=== PATIENT | male | born 1960 | race Caucasian/White ===

== ENCOUNTER → 2020-12-24 13:34 | Outpatient (BNVA) | payer OTHER, SELFPAY | PROVIDERS: Family Provider Family Medicine; PCP Family Medicine; Visit Provider Podiatrist Foot & Ankle Surgery | DX: M25.872 Other specified joint disorders, left ankle and foot (principal) | CPT/HCPCS: 73630 ==

== ENCOUNTER 2021-02-04 16:04 | Outpatient (CLI) | payer OTHER, SELFPAY ==
--- NOTE | 2021-02-04 16:00 | MR_ITS ---
WS: [id number] INDICATION: Chronic left foot pain TECHNIQUE: MRI left foot without gadolinium enhancement. Sagittal T1 PD and STIR imaging. Axial T1 an d T2 and STIR imaging. Axial T2 imaging. Coronal PD imaging. Patient refused coronal T2 imaging due t o pain FINDINGS: Pes planus. Moderate joint space narrowing involving the IP joints. Mild degenerative arthr itis at the first MTP. Bipartite or chronic fracture of the lateral first sesamoid. Comminuted fracture of the medial sesamo id best visualized on the coronal PD imaging with multiple visualized fracture lines. Small amount of edema. Normal visualized tibiotalar joint. Normal talocalcaneal articulation. Normal cuboid. Base of the fif th metatarsal is normal. Normal talonavicular articulation. Normal metatarsals. MR/MR foot LT wo con* [id number] IMPRESSION: 1. Comminuted fracture involving the medial first sesamoid with multiple visua lized fracture lines best seen on the coronal PD imaging. Small amount of edema in this location. Chronic appearing bipartite or chronic fracture of the later al sesamoid. 2. No other acute appearing findings. 3. Normal tibiotalar and talocalcaneal articulations. Normal talonavicular art iculation. 4. Mild degenerative narrowing involving the IP joints and first MTP.
== END 2021-02-04 16:05 | disposition home or self-care (01) ==
LOC: RADSHAW 16:14
PROVIDERS: Family Provider Family Medicine; PCP Family Medicine; Visit Provider Podiatrist Foot & Ankle Surgery
DX: M25.872 Other specified joint disorders, left ankle and foot (principal); S92.812A Other fracture of left foot, initial encounter for closed fracture; X58.XXXA Exposure to other specified factors, initial encounter
CPT/HCPCS: 73718

== ENCOUNTER 2021-02-25 14:30 | Outpatient (CLI) | payer OTHER, SELFPAY | END 2021-02-25 14:31 | disposition home or self-care (01) | LOC: SPT 14:30 | PROVIDERS: Family Provider Family Medicine; PCP Family Medicine; Visit Provider Podiatrist Foot & Ankle Surgery | DX: Z46.89 Encounter for fitting and adjustment of other specified devices (principal); M25.872 Other specified joint disorders, left ankle and foot; M79.672 Pain in left foot; M77.42 Metatarsalgia, left foot | CPT/HCPCS: 97760; L4361 ==

== ENCOUNTER → 2021-04-25 13:21 | Outpatient (BNVA) | payer OTHER, SELFPAY | PROVIDERS: Family Provider Family Medicine; PCP Family Medicine; Visit Provider Internal Medicine | DX: E21.3 Hyperparathyroidism, unspecified (principal) | CPT/HCPCS: 99204 ==

== ENCOUNTER → 2021-07-01 14:19 | Outpatient (BNVA) | payer OTHER, SELFPAY | PROVIDERS: Family Provider Family Medicine; PCP Family Medicine; Visit Provider Nurse Practitioner Family | DX: I25.10 Atherosclerotic heart disease of native coronary artery without angina pectoris (principal); I10 Essential (primary) hypertension; Z95.1 Presence of aortocoronary bypass graft | CPT/HCPCS: 99214 ==

== ENCOUNTER → 2021-08-05 14:21 | Outpatient (BNVA) | payer OTHER, SELFPAY | PROVIDERS: Family Provider Family Medicine; PCP Family Medicine; Visit Provider Internal Medicine | DX: E21.3 Hyperparathyroidism, unspecified (principal); N18.2 Chronic kidney disease, stage 2 (mild) | CPT/HCPCS: 80053; 82310; 83970; 99214 ==

== ENCOUNTER 2021-08-08 15:51 | Outpatient (CLI) | payer OTHER, SELFPAY ==
[2021-08-08 17:59] LABS: Urine Creatinine 131 mg/dL (39-259)
[2021-08-08 18:37] LABS: Total Volume Urine 1500 ml
[2021-08-08 18:38] LABS: Total Volume Urine 1500 ml
[2021-08-08 19:34] LABS: Calcium 24 Hour Urine 302 mg/24hr (100-300); Urine Calcium Result 20.1 mg/dL
== END 2021-08-08 15:52 | disposition home or self-care (01) ==
LOC: LAB 15:54
PROVIDERS: PCP Family Medicine; Visit Provider Internal Medicine
DX: E21.3 Hyperparathyroidism, unspecified (principal); E78.49 Other hyperlipidemia
CPT/HCPCS: 82340; 82570

== ENCOUNTER → 2021-08-14 14:52 | Outpatient (BNVA) | payer OTHER, SELFPAY | PROVIDERS: PCP Family Medicine; Visit Provider Podiatrist Foot & Ankle Surgery | DX: Q66.71 Congenital pes cavus, right foot (principal); Q66.72 Congenital pes cavus, left foot; S92.812D Other fracture of left foot, subsequent encounter for fracture with routine healing; M77.40 Metatarsalgia, unspecified foot; X58.XXXD Exposure to other specified factors, subsequent encounter | CPT/HCPCS: 73630; 99214 ==

== ENCOUNTER → 2021-11-14 13:17 | Outpatient (BNVA) | payer OTHER, SELFPAY | PROVIDERS: PCP Family Medicine; Visit Provider Internal Medicine | DX: E21.3 Hyperparathyroidism, unspecified (principal); N18.2 Chronic kidney disease, stage 2 (mild); M81.0 Age-related osteoporosis without current pathological fracture; Z87.891 Personal history of nicotine dependence | CPT/HCPCS: 36415; 82310; 83970; 99214 ==

== ENCOUNTER → 2021-11-29 13:09 | Outpatient (BNVA) | payer OTHER, SELFPAY | PROVIDERS: PCP Family Medicine; Visit Provider Podiatrist Foot & Ankle Surgery | DX: S92.812D Other fracture of left foot, subsequent encounter for fracture with routine healing; X58.XXXD Exposure to other specified factors, subsequent encounter; Q66.71 Congenital pes cavus, right foot; Q66.72 Congenital pes cavus, left foot; M77.40 Metatarsalgia, unspecified foot | CPT/HCPCS: 99213 ==

== ENCOUNTER → 2021-12-03 16:17 | Outpatient (BNVA) | payer OTHER, SELFPAY | PROVIDERS: PCP Family Medicine; Visit Provider Internal Medicine | DX: I12.9 Hypertensive chronic kidney disease with stage 1 through stage 4 chronic kidney disease, or unspecified chronic kidney disease (principal); N18.9 Chronic kidney disease, unspecified; Z87.891 Personal history of nicotine dependence; Z95.1 Presence of aortocoronary bypass graft; I25.10 Atherosclerotic heart disease of native coronary artery without angina pectoris | CPT/HCPCS: 99213 ==

== ENCOUNTER 2021-12-27 13:12 | Outpatient (CLI) | payer OTHER, SELFPAY ==
--- NOTE | 2021-12-27 13:30 | XR_ITS ---
WS: [id number] SCREENING DEXA SCAN [employer] CLINICAL INFORMATION: osteoporosis COMPARISON: None. FINDINGS: The L1-L4 bone mineral density measures 1.393 g/cm2. This corresponds to a T score score of 1.4 and Z score of 1.1. Left femoral neck bone mineral density measures 0.686 g/cm2. This corresponds to a T score of -2.9 an d Z score of -2.8. Right femoral neck bone mineral density measures 0.753 g/cm2. This corresponds to a T score -2.4of an d Z score of -2.4. Mean femoral neck bone mineral density measures 0.720 g/cm2. This corresponds to a T score of -2.6 an d Z score of -2.6. XR/XR DEXA axial skeleton* [id number] IMPRESSION: Normal bone mineralization lumbar spine. Osteoporosis femoral necks at the lowe r end of the range. Patient's FRAX calculated 10 year probability for major osteoporotic fracture i s 17.3 % and osteoporotic hip fracture is 8.8%.
== END 2021-12-27 13:13 | disposition home or self-care (01) ==
LOC: RAD 13:13
PROVIDERS: PCP Family Medicine; Visit Provider Internal Medicine
DX: M81.0 Age-related osteoporosis without current pathological fracture (principal)
CPT/HCPCS: 77080

== ENCOUNTER 2021-12-30 08:45 | Outpatient (CLI) | payer OTHER, SELFPAY ==
--- NOTE | 2021-12-30 08:49 | NM_ITS ---
WS: [email or web address] INDICATION: Hyperparathyroidism TECHNIQUE: Nuclear medicine parathyroid study. 17.6 mCi technetium 99m sestamibi.Initial and Delayed imaging with chin and suprasternal markers. FINDINGS: Normal homogeneous uptake in both thyroid lobes. Normal submandibular uptake. Delayed imagi ng demonstrates normal thyroid washout. No retained activity to suggest parathyroid adenoma. No other suspicious findings. NM/NM parathyroid [id number] IMPRESSION: No evidence of parathyroid adenoma.
== END 2021-12-30 08:46 | disposition home or self-care (01) ==
LOC: RAD 08:47
PROVIDERS: PCP Family Medicine; Visit Provider Internal Medicine
DX: E21.3 Hyperparathyroidism, unspecified (principal)
CPT/HCPCS: 78070; A9500

== ENCOUNTER → 2022-02-18 13:10 | Outpatient (BNVA) | payer OTHER, SELFPAY | PROVIDERS: PCP Family Medicine; Visit Provider Podiatrist Foot & Ankle Surgery | DX: Q66.71 Congenital pes cavus, right foot (principal); Q66.72 Congenital pes cavus, left foot; M77.41 Metatarsalgia, right foot; M77.42 Metatarsalgia, left foot; S92.812D Other fracture of left foot, subsequent encounter for fracture with routine healing; X58.XXXD Exposure to other specified factors, subsequent encounter; L84 Corns and callosities | CPT/HCPCS: 99214 ==

== ENCOUNTER → 2022-04-09 15:16 | Outpatient (BNVA) | payer OTHER, SELFPAY | PROVIDERS: PCP Family Medicine; Visit Provider Internal Medicine | DX: E21.3 Hyperparathyroidism, unspecified (principal); N18.2 Chronic kidney disease, stage 2 (mild); I10 Essential (primary) hypertension | CPT/HCPCS: 36415; 82310; 83970; 99214 ==

== ENCOUNTER → 2022-08-26 13:29 | Outpatient (BNVA) | payer OTHER, SELFPAY | PROVIDERS: PCP Family Medicine; Visit Provider Podiatrist Foot & Ankle Surgery | DX: Q66.72 Congenital pes cavus, left foot (principal); Q66.71 Congenital pes cavus, right foot; M77.41 Metatarsalgia, right foot; M77.42 Metatarsalgia, left foot; L84 Corns and callosities | CPT/HCPCS: 99213 ==

== ENCOUNTER → 2022-10-07 14:23 | Outpatient (BNVA) | payer OTHER, SELFPAY | PROVIDERS: Visit Provider Internal Medicine | DX: E21.3 Hyperparathyroidism, unspecified (principal); N18.2 Chronic kidney disease, stage 2 (mild); I10 Essential (primary) hypertension | CPT/HCPCS: 80053; 82306; 82310; 83970; 99213; 99214 ==

== ENCOUNTER → 2022-10-27 13:48 | Outpatient (BNVA) | payer OTHER, SELFPAY | PROVIDERS: Visit Provider Podiatrist Foot & Ankle Surgery | DX: L84 Corns and callosities; Q66.72 Congenital pes cavus, left foot; Q66.71 Congenital pes cavus, right foot; M77.42 Metatarsalgia, left foot; M77.41 Metatarsalgia, right foot | CPT/HCPCS: 99213 ==

== ENCOUNTER → 2022-12-16 08:26 | Outpatient (BNVA) | payer OTHER, SELFPAY | PROVIDERS: Referring Provider Family Medicine; Visit Provider Surgery | DX: Z12.11 Encounter for screening for malignant neoplasm of colon (principal) | CPT/HCPCS: 99203 ==

== ENCOUNTER → 2023-01-12 12:57 | Outpatient (BNVA) | payer OTHER, SELFPAY | PROVIDERS: Visit Provider Podiatrist Foot & Ankle Surgery | DX: L84 Corns and callosities; M20.42 Other hammer toe(s) (acquired), left foot; M20.41 Other hammer toe(s) (acquired), right foot; M21.621 Bunionette of right foot; M21.622 Bunionette of left foot; M77.42 Metatarsalgia, left foot; M77.41 Metatarsalgia, right foot | CPT/HCPCS: 99213 ==

== ENCOUNTER → 2023-01-21 14:29 | Outpatient (BNVA) | payer OTHER, SELFPAY | PROVIDERS: Visit Provider Internal Medicine | DX: Z95.1 Presence of aortocoronary bypass graft (principal); I10 Essential (primary) hypertension; Z87.891 Personal history of nicotine dependence | CPT/HCPCS: 99214 ==

== ENCOUNTER 2023-01-29 07:42 | Day surgery (SDC) | payer OTHER, SELFPAY ==
--- NOTE | 2023-01-29 07:36 | W.PM.OPSFHP ---
Same Day Surgery H&P Indication for Procedure/HPI DATE OF PROCEDURE: January 29, 2023 CHIEF COMPLAINT/INDICATIONFOR SURGICAL PROCEDURE: need for screening colonoscopy PREOP DIAGNOSIS: need for screening colonoscopy PLANNED PROCEDURE: Operation Date: 01/29/23 08:50 Proposed Procedures p Colonoscopy(Not Applicable) - Junito Johnston MD Medications/Allergies* Home Medications Medication Instructions Recorded Confirmed Type atenolol 100 mg tablet 50 mg PO DAILY 06/22/19 01/27/23 History cholecalciferol (vitamin D3) 25 1,000 unit PO DAILY 06/22/19 01/27/23 History mcg (1,000 unit) capsule folic acid 1 mg tablet 1 mg PO DAILY 06/22/19 01/27/23 History hydroxychloroquine 200 mg tablet 200 mg PO BID 06/22/19 01/27/23 History lisinopril 10 mg tablet 5 mg PO DAILY 06/22/19 01/27/23 History omeprazole 40 mg capsule,delayed 40 mg PO DAILY 06/22/19 01/27/23 History release rosuvastatin 20 mg tablet (Crestor) 20 mg PO DAILY 06/22/19 01/27/23 History sildenafil 50 mg tablet (Viagra) 50 mg PO DAILY PRN Sexual Activity 06/22/19 01/27/23 History diclofenac sodium 1 % topical gel 2 g topical QID PRN Pain 10/04/20 01/27/23 History (Arthritis Pain (diclofenac)) sulfasalazine 500 mg tablet 1.5 g PO BID 10/04/20 01/27/23 History leflunomide 20 mg tablet 20 mg PO DAILY 01/21/23 01/27/23 History Allergies/Adverse Reactions Allergy/AdvReac Type Severity Reaction Status Date / Time No Known Allergies Allergy Verified 01/27/23 12:04 Pertinent History/Comorbid Conditions* Medical History (Updated 08/18/21 @ 15:31 by Rivera Walker DPM) Hyperlipidemia HTN (hypertension) Surgical History (Updated 07/19/19 @ 19:10 by Ameya Hill MD) S/P PTCA (percutaneous transluminal coronary angioplasty) S/P CABG (coronary artery bypass graft) Family History (Updated 07/15/19 @ 12:07 by Laura Peck RN) Adopted Social History Smoking and tobacco/nicotine status: former use of tobacco/nicotine Alcohol intake: never Substance/Drug Use: never Pertinent Exam Findings alert and oriented x 3 Recommendations Surgery/Procedure today Coding Level of Care Code Acute Code for Chg Fwasael
[2023-01-29 07:54] VITALS: BP 166/103; PULSE 69; RESP 18; TEMP 36.3; O2SAT 98; BMI 29.3
--- NOTE | 2023-01-29 08:08 | P.ANESASSM_ITS ---
Pre-Anesthetic Assessment Height/Weight: Height 1.91 m Weight 106.594 kg Temp Pulse Resp BP Pulse Ox O2 Del Method 97.4 F L 69 18 166/103 98 Room Air 01/29/23 07:54 01/29/23 07:54 01/29/23 07:54 01/29/23 07:54 01/29/23 07:54 01/29/23 07:54 Preop Diagnosis: need for screening colonoscopy Operation Date: 01/29/23 08:50 Proposed Procedures p Colonoscopy(Not Applicable) - Junito Johnston MD Familial anesthetic complications: none Last intake: Intake Last Liquid Date 01/28/23 Last Liquid Time 23:50 Last Solid Date 01/27/23 Last Solid Time 21:00 Social No alcohol and No tobacco Exam alert, oriented x 3, clear to auscultation bilaterally and regular rate & rhythm Airway Mallampati: Class II Dentition: full CV/HEM Coronary Artery Disease (cabg) and Hypertension Chronic Renal Insufficiency GI Gastroesophageal Reflux Disease Metabolic Hyperlipidemia Anesthetic Plan ASA status: 3 Anesthesia: MAC Risk of > 500 ml blood loss (7ml/kg in children): No Medications/Allergies Home Medications Medication Instructions Recorded Confirmed Last Taken Type atenolol 100 mg tablet 50 mg PO DAILY 06/22/19 01/27/23 01/29/23 05:30 History cholecalciferol (vitamin D3) 25 1,000 unit PO DAILY 06/22/19 01/27/23 01/28/23 History mcg (1,000 unit) capsule folic acid 1 mg tablet 1 mg PO DAILY 06/22/19 01/27/23 01/28/23 History hydroxychloroquine 200 mg tablet 200 mg PO BID 06/22/19 01/27/23 01/28/23 History lisinopril 10 mg tablet 5 mg PO DAILY 06/22/19 01/27/23 01/28/23 History omeprazole 40 mg capsule,delayed 40 mg PO DAILY 06/22/19 01/27/23 01/28/23 History release rosuvastatin 20 mg tablet (Crestor) 20 mg PO DAILY 06/22/19 01/27/23 01/28/23 History sildenafil 50 mg tablet (Viagra) 50 mg PO DAILY PRN Sexual Activity 06/22/19 01/29/23 01/24/23 History Toe spacer #1 ea 09/24/20 01/12/23 Unknown Rx custom orthotics #1 ea 09/24/20 01/12/23 Unknown Rx diclofenac sodium 1 % topical gel 2 g topical QID PRN Pain 10/04/20 01/27/23 01/26/23 History (Arthritis Pain (diclofenac)) sulfasalazine 500 mg tablet 1.5 g PO BID 10/04/20 01/27/23 01/28/23 History CUSTOM full length low profile #1 ea 01/12/23 01/12/23 Unknown Rx co-poly insoles aspirin 81 mg tablet,delayed 81 mg PO DAILY #90 tabs 01/21/23 01/27/23 01/27/23 Rx release (Adult Low Dose Aspirin) leflunomide 20 mg tablet 20 mg PO DAILY 01/21/23 01/27/23 01/28/23 History nitroglycerin 0.4 mg sublingual 0.4 mg sublingual Q5M PRN chest 01/21/23 01/29/23 2 Years Ago Rx tablet (Nitrostat) pain #25 tabs ~01/29/21 Allergies Allergy/AdvReac Type Severity Reaction Status Date / Time No Known Allergies Allergy Verified 01/27/23 12:04 [facility] Anesthesia Medical History Hyperlipidemia HTN (hypertension) Surgical History S/P PTCA (percutaneous transluminal coronary angioplasty) S/P CABG (coronary artery bypass graft) Family History Other Adopted Social History Smoking and tobacco/nicotine status: former use of tobacco/nicotine Alcohol intake: never Substance/Drug Use: never Data Anesthesia Cardiac Studies: No Data to Display
[2023-01-29] MEDS: sodium chloride 0.9% 1,000 ML 30 ML IV (08:11)
[2023-01-29 09:43] VITALS: BP 135/79; PULSE 64; RESP 18; TEMP 36.1; O2SAT 95
[2023-01-29 09:55] VITALS: BP 127/78; PULSE 60; RESP 18; O2SAT 97
[2023-01-29 10:08] VITALS: BP 129/81; PULSE 63; RESP 18; O2SAT 96
--- NOTE | 2023-01-29 13:13 | ANE.PACU2 ---
Inpatient post-anesthesia follow up: Airway intact: Yes Vital signs: Temperature 97 F Pulse Rate 63 Respiratory Rate 18 Blood Pressure 129/81 Pulse Oximetry 96 Oxygen Delivery Me thod Room Air Oxygen Flow Rate Fraction of Inspir ed Oxygen Hydration adequate: Yes Nausea and vomiting: No Pain level: 1 Mental status: Baseline
== END 2023-01-29 10:24 | disposition home or self-care (01) ==
PROVIDERS: Visit Provider Surgery
PROC: 0DJD8ZZ Inspection of Lower Intestinal Tract, Via Natural or Artificial Opening Endoscopic (ICD-10-PCS; CPT 45378; principal; 2023-01-29 08:50)
DX: Z12.11 Encounter for screening for malignant neoplasm of colon (principal); E78.5 Hyperlipidemia, unspecified; I10 Essential (primary) hypertension; Z95.1 Presence of aortocoronary bypass graft; K57.30 Diverticulosis of large intestine without perforation or abscess without bleeding; D12.5 Benign neoplasm of sigmoid colon; K62.1 Rectal polyp; I25.10 Atherosclerotic heart disease of native coronary artery without angina pectoris; K21.9 Gastro-esophageal reflux disease without esophagitis; Z79.82 Long term (current) use of aspirin; Z87.891 Personal history of nicotine dependence
CPT/HCPCS: 45380; 45385; 88305; J2704; J7030

== ENCOUNTER → 2023-02-19 15:03 | Outpatient (BNVA) | payer OTHER, SELFPAY | PROVIDERS: Visit Provider Surgery | DX: Z09 Encounter for follow-up examination after completed treatment for conditions other than malignant neoplasm (principal) | CPT/HCPCS: 99213 ==

== ENCOUNTER → 2023-03-16 15:05 | Outpatient (BNVA) | payer OTHER, SELFPAY | PROVIDERS: PCP Family Medicine; Visit Provider Podiatrist Foot & Ankle Surgery | DX: M20.41 Other hammer toe(s) (acquired), right foot; M20.42 Other hammer toe(s) (acquired), left foot; M21.621 Bunionette of right foot; M21.622 Bunionette of left foot; M77.41 Metatarsalgia, right foot; M77.42 Metatarsalgia, left foot; L84 Corns and callosities; N18.2 Chronic kidney disease, stage 2 (mild) | CPT/HCPCS: 99213 ==

== ENCOUNTER 2023-03-17 15:44 | Outpatient (CLI) | payer OTHER, SELFPAY ==
--- NOTE | 2023-03-17 15:53 | MR_ITS ---
WS: [id number] MRI LEFT SHOULDER NONCONTRAST TECHNIQUE: Sagittal T2, coronal T1, T2 and proton density imaging. Axial gradient PDE imaging. CLINICAL INFORMATION: HX DEGENERATIVE CHANGES OSTEOARTHRITIS COMPARISON: None. FINDINGS: Advanced degenerative arthritis of the AC joint with mild downsloping acromion. Slight subacromial sp urring. Small amount of subacromial and subdeltoid fluid. Narrowing of the subacromial space with imp ingement distal supraspinatus. High-grade complete tear of the distal supraspinatus with tendon retra ction measuring approximately 13 mm. Infraspinatus is intact. Normal teres minor. Tendinopathy with c hronic thinning involving the subscapularis tendon which appears intact. Biceps tendon intact within the bicipital groove. Slight medial subluxation of the proximal biceps t endon. Intra-articular biceps tendon appears intact. Advanced degenerative narrowing of the glenohume ral articulation. Degenerative irregularity of the glenoid labrum. Degenerative cystic changes involv ing the greater tuberosity. IMPRESSION: 1. High-grade complete tear of the distal supraspinatus with 13 mm of tendon retraction. 2. Rotator cuff is otherwise intact. 3. Tendinopathy with chronic thinning of the subscapularis tendon distally. 4. Biceps tendon intact within the bicipital groove with slight medial subluxation in the proximal s egment. 5. Intra-articular biceps tendon appears intact. 6. Advanced degenerative arthritis AC joint with fluid and edema. Impingement distal supraspinatus with subacromial spurring. 7. Degenerative irregularity of the glenoid labrum.
== END 2023-03-17 15:45 | disposition home or self-care (01) ==
LOC: RAD 15:46
PROVIDERS: PCP Family Medicine; Visit Provider Family Medicine
DX: M75.122 Complete rotator cuff tear or rupture of left shoulder, not specified as traumatic (principal); M19.012 Primary osteoarthritis, left shoulder; R60.9 Edema, unspecified
CPT/HCPCS: 73221

== ENCOUNTER → 2023-04-13 14:43 | Outpatient (BNVA) | payer OTHER, SELFPAY | PROVIDERS: PCP Family Medicine; Visit Provider Podiatrist Foot & Ankle Surgery | DX: N18.2 Chronic kidney disease, stage 2 (mild); M20.41 Other hammer toe(s) (acquired), right foot; M20.42 Other hammer toe(s) (acquired), left foot; M21.621 Bunionette of right foot; M21.622 Bunionette of left foot; M77.41 Metatarsalgia, right foot; M77.42 Metatarsalgia, left foot; L84 Corns and callosities | CPT/HCPCS: 99213 ==

== ENCOUNTER → 2023-04-15 08:12 | Outpatient (BNVA) | payer OTHER, SELFPAY | PROVIDERS: PCP Family Medicine; Visit Provider Internal Medicine | DX: E21.3 Hyperparathyroidism, unspecified (principal); N18.2 Chronic kidney disease, stage 2 (mild); I10 Essential (primary) hypertension; E55.9 Vitamin D deficiency, unspecified; S46.812A Strain of other muscles, fascia and tendons at shoulder and upper arm level, left arm, initial encounter; X58.XXXA Exposure to other specified factors, initial encounter | CPT/HCPCS: 36415; 80053; 82306; 82310; 83970; 99214 ==

== ENCOUNTER → 2023-07-20 13:52 | Outpatient (BNVA) | payer OTHER, SELFPAY | PROVIDERS: PCP Family Medicine; Visit Provider Podiatrist Foot & Ankle Surgery | DX: N18.2 Chronic kidney disease, stage 2 (mild) (principal); L84 Corns and callosities; M79.671 Pain in right foot; M79.672 Pain in left foot; L60.3 Nail dystrophy | CPT/HCPCS: 99213 ==

== ENCOUNTER → 2023-08-27 10:19 | Outpatient (BNVA) | payer OTHER, SELFPAY | PROVIDERS: PCP Family Medicine; Visit Provider Podiatrist Foot & Ankle Surgery | DX: L60.3 Nail dystrophy (principal); N18.2 Chronic kidney disease, stage 2 (mild); L84 Corns and callosities | CPT/HCPCS: 11750 ==

== ENCOUNTER → 2023-09-10 11:30 | Outpatient (BNVA) | payer OTHER, SELFPAY | PROVIDERS: PCP Family Medicine; Visit Provider Podiatrist Foot & Ankle Surgery | DX: L60.0 Ingrowing nail (principal) | CPT/HCPCS: 99213 ==

== ENCOUNTER → 2023-11-10 09:27 | Outpatient (BNVA) | payer OTHER, SELFPAY | PROVIDERS: PCP Family Medicine; Visit Provider Internal Medicine | DX: E21.0 Primary hyperparathyroidism (principal); E55.9 Vitamin D deficiency, unspecified; M81.0 Age-related osteoporosis without current pathological fracture | CPT/HCPCS: 99214 ==

== ENCOUNTER 2023-11-24 08:30 | Outpatient (CLI) | payer OTHER, SELFPAY ==
--- NOTE | 2023-11-24 08:30 | NM_ITS ---
WS: [email or web address] EXAMINATION: NM parathyroid [id number] ORDER DATE: 11/24/2023 8:36 AM COMPARISON: 12/30/2021 HISTORY: hyperparathyroidiam TECHNIQUE: Parathyroid scintigraphy with 19.2 mCi of technetium 99m administered. AP and oblique view s obtained with and without chin and suprasternal notch markers. Initial and 2 hour delayed imaging a cquired. FINDINGS: Normal submandibular gland uptake. Bilateral homogenous thyroid gland uptake on the initial images. No significant retained uptake on th e delayed images to indicate parathyroid adenoma. Normal thyroid gland washout. NM/NM parathyroid [id number] IMPRESSION: 1. No evidence of parathyroid adenoma.
== END 2023-11-24 08:31 | disposition home or self-care (01) ==
PROVIDERS: PCP Family Medicine; Visit Provider Internal Medicine
DX: E21.0 Primary hyperparathyroidism (principal)
CPT/HCPCS: 78070; A9500

== ENCOUNTER 2023-12-16 10:15 | Outpatient (CLI) | payer OTHER, SELFPAY ==
--- NOTE | 2023-12-16 10:20 | USCV_ITS ---
Moise Robles Age: 63 Gender: M : 1960 Exam Date: 12/16/2023 11:05 Ordering Phys: Olga Harrison MD Technologist: [employer] Exam Location: [facility] [place] Indication: AAA Screening HISTORY: Diameter (cm) AP x Transverse x Length Velocity (cm/s) Waveform Prox Aorta: 1.79 x 1.66 x 51.20 Mid Aorta: 1.74 x 1.81 x 45.50 Distal Aorta: 1.58 x 1.58 x 46.90 Right Iliac Prox: 1.23 x 1.27 x 50.20 Left Iliac Prox: 1.14 x 1.27 x 54.80 Stent Prox Landing x x Aneurysmal Sac Max x x Lt Lat Sac Dim Rt Lat Sac Dim Stent Dist Landing x x Right Iliac Stent x x Left Iliac Stent x x Right Renal Art Left Renal Art FINDINGS: Comparison: none available. No evidence of abdominal aortic or bilateral iliac aneurysm. Ectatic abdominal aorta with evidence of atherosclerotic plaque noted. CONCLUSIONS No evidence of abdominal aortic aneurysm. Dr. Carole Ortiz DO (Electronically Signed) Final Date: 16 December 2023 15:04 S
== END 2023-12-16 10:16 | disposition home or self-care (01) ==
LOC: RAD 10:15
PROVIDERS: PCP Family Medicine; Visit Provider Family Medicine
DX: Z01.89 Encounter for other specified special examinations (principal)
CPT/HCPCS: 76706

== ENCOUNTER → 2024-01-20 13:15 | Outpatient (BNVA) | payer OTHER, SELFPAY | PROVIDERS: PCP Family Medicine; Visit Provider Internal Medicine | DX: I10 Essential (primary) hypertension (principal); Z95.1 Presence of aortocoronary bypass graft | CPT/HCPCS: 99214 ==

== ENCOUNTER → 2024-01-27 12:11 | Outpatient (BNVA) | payer OTHER, SELFPAY | PROVIDERS: PCP Family Medicine; Visit Provider Internal Medicine | DX: E55.9 Vitamin D deficiency, unspecified (principal); M81.0 Age-related osteoporosis without current pathological fracture; E21.0 Primary hyperparathyroidism | CPT/HCPCS: 36415; 80053; 82306; 82310; 83970 ==

== ENCOUNTER 2024-02-24 15:12 | Outpatient (CLI) | payer OTHER, SELFPAY ==
--- NOTE | 2024-02-24 15:00 | XR_ITS ---
WS: [email or web address] SCREENING DEXA SCAN [employer] CLINICAL INFORMATION: osteoporosis COMPARISON: 2021 FINDINGS: The L1-L4 bone mineral density measures 1.468 g/cm2. This corresponds to a T score score of 2.1 and Z score of 1.8. Left femoral neck bone mineral density measures 0.867 g/cm2. This corresponds to a T score of -1.6 an d Z score of -1.5. Right femoral neck bone mineral density measures 0.898 g/cm2. This corresponds to a T score -1.4of an d Z score of -1.3. Mean femoral neck bone mineral density measures 0.882 g/cm2. This corresponds to a T score of -1.5 an d Z score of -1.4. XR/XR DEXA axial skeleton* [id number] IMPRESSION: Normal bone mineralization lumbar spine. Osteopenia femoral necks. Patient's FRAX calculated 10 year probability for major osteoporotic fracture i s 16.8% and osteoporotic hip fracture is 5.2%. Bone mineral density lumbar spine increased 5.4% Bone mineral density femoral necks increased 22.5%
== END 2024-02-24 15:13 | disposition home or self-care (01) ==
LOC: RAD 15:14
PROVIDERS: PCP Family Medicine; Visit Provider Internal Medicine
DX: M81.0 Age-related osteoporosis without current pathological fracture (principal); M85.88 Other specified disorders of bone density and structure, other site
CPT/HCPCS: 77080

== ENCOUNTER → 2024-04-05 09:48 | Outpatient (BNVA) | payer OTHER, SELFPAY | PROVIDERS: PCP Family Medicine; Visit Provider Internal Medicine | DX: E55.9 Vitamin D deficiency, unspecified (principal); M81.0 Age-related osteoporosis without current pathological fracture; E21.0 Primary hyperparathyroidism | CPT/HCPCS: 99214 ==

== ENCOUNTER → 2024-11-16 11:49 | Outpatient (BNVA) | payer OTHER, SELFPAY | PROVIDERS: PCP Family Medicine; Visit Provider Internal Medicine | DX: E55.9 Vitamin D deficiency, unspecified (principal); M81.0 Age-related osteoporosis without current pathological fracture; E21.0 Primary hyperparathyroidism | CPT/HCPCS: 99214 ==

== ENCOUNTER → 2025-01-18 12:51 | Outpatient (BNVA) | payer OTHER, SELFPAY | PROVIDERS: PCP Family Medicine; Visit Provider Internal Medicine | DX: I25.10 Atherosclerotic heart disease of native coronary artery without angina pectoris (principal); I10 Essential (primary) hypertension; Z98.61 Coronary angioplasty status; Z95.1 Presence of aortocoronary bypass graft | CPT/HCPCS: 99213 ==